=== PATIENT | male | born 1970 | race Caucasian/White ===

== ENCOUNTER 2017-02-14 21:48 | Emergency (ER) | payer BC ==
[~2017-02-14] VITALS: Ht 180.3 cm; Wt 113.6 kg
[2017-02-14] MEDS ORDERED: LOSARTAN POTASS1 TA4 PO (21:57)
[2017-02-14] MEDS ORDERED: VITAMIN D32000 IU PO (21:58)
[2017-02-14] MEDS ORDERED: CYCLOBENZAPRINE10 M1 PO (23:27)
[2017-02-14 23:42] VITALS: BP 150/86
== END 2017-02-14 23:42 | disposition home or self-care (01) ==
LOC: ED 21:48
DX: S29.011A Strain of muscle and tendon of front wall of thorax, initial encounter (principal); S16.1XXA Strain of muscle, fascia and tendon at neck level, initial encounter; I10 Essential (primary) hypertension; X50.3XXA Overexertion from repetitive movements, initial encounter; R07.89 Other chest pain
CPT/HCPCS: J1885

== ENCOUNTER → 2019-08-14 | Outpatient (CLI) | payer BC ==
[~2019-08-14] MED LIST: CYCLOBENZAPRINE10 M1 PO; LOSARTAN POTASS1 TA4 PO; VITAMIN D32000 IU PO
[2019-08-14 16:41] LABS: BASO # 0.1 (0.02-0.10); EOS # 0.1 (0.04-0.40); EOS % 1.5 % (0.0-4.0); HEMATOCRIT 43.4 % (42.0-52.0); HEMOGLOBIN 14.2 g/dL (13.5-18.0); LYMPH# 2.5 (1.50-4.00); MEAN CELL VOLUME 83 fl (78-100); MEAN CORPUSCULAR HEMOGLOBIN 27 pg (27-31); MEAN CORPUSCULAR HGB CONC 33 g/dL (33-37); MEAN PLATELET VOLUME 9.1 fl (7.4-10.4); MONO # 0.8 (0.20-0.80); PLATELET COUNT 345 K/mm3 (130-400); RED BLOOD COUNT 5.23 M/mm3 (4.20-5.60); RED CELL DISTRIBUTION WIDTH 13.8 % (11.5-14.5); WHITE BLOOD COUNT 8.4 K/mm3 (4.8-10.8)
[2019-08-14 16:52] LABS: ALBUMIN 4.3 g/dL (3.5-5.0); POTASSIUM 3.9 mmol/L (3.5-5.1)
[2019-08-14 16:53] LABS: CALCIUM 9.1 mg/dL (8.3-10.5)
[2019-08-14 16:54] LABS: TOTAL PROTEIN 7.3 g/dL (6.4-8.3)
[2019-08-14 16:56] LABS: TOTAL BILIRUBIN 0.7 mg/dL (0.2-1.2)
[2019-08-14 17:37] LABS: ERYTHROCYTE SEDIMENTATION RATE 18 mm/hr (0-15)
[2019-08-15 17:46] LABS: TESTOSTERONE 147 ng/dL (240-871)
== END ==
LOC: LAB 16:31
PROVIDERS: Internal Medicine
DX: Z00.00 Encounter for general adult medical examination without abnormal findings (principal); E23.0 Hypopituitarism; K90.89 Other intestinal malabsorption

== ENCOUNTER → 2019-12-14 | Outpatient (CLI) | payer BC ==
[2019-12-14 07:12] LABS: TOTAL PROTEIN 6.6 g/dL (6.4-8.3)
[2019-12-14 07:14] LABS: TOTAL BILIRUBIN 1.1 mg/dL (0.2-1.2)
[2019-12-14 07:18] LABS: DIRECT BILIRUBIN 0.4 mg/dL (0.0-0.5)
[2019-12-14 18:16] LABS: TESTOSTERONE 858 ng/dL (240-871)
== END ==
LOC: LAB 06:05
PROVIDERS: Internal Medicine
DX: E78.5 Hyperlipidemia, unspecified (principal); E55.9 Vitamin D deficiency, unspecified; K90.9 Intestinal malabsorption, unspecified; R79.89 Other specified abnormal findings of blood chemistry

== ENCOUNTER → 2020-08-15 | Outpatient (CLI) | payer BC ==
[2020-08-15 17:02] LABS: BASO # 0.1 (0.02-0.10); EOS # 0.1 (0.04-0.40); EOS % 1.1 % (0.0-4.0); HEMATOCRIT 47.8 % (42.0-52.0); HEMOGLOBIN 15.8 g/dL (13.5-18.0); LYMPH# 2.7 (1.50-4.00); MEAN CELL VOLUME 84 fl (78-100); MEAN CORPUSCULAR HEMOGLOBIN 28 pg (27-31); MEAN CORPUSCULAR HGB CONC 33 g/dL (33-37); MEAN PLATELET VOLUME 9.1 fl (7.4-10.4); MONO # 1.2 (0.20-0.80); NEU # 6.2 (1.40-6.50); PLATELET COUNT 281 K/mm3 (130-400); RED BLOOD COUNT 5.72 M/mm3 (4.20-5.60); RED CELL DISTRIBUTION WIDTH 13.8 % (11.5-14.5); WHITE BLOOD COUNT 10.3 K/mm3 (4.8-10.8)
[2020-08-15 17:08] LABS: ALBUMIN 4.3 g/dL (3.5-5.0)
[2020-08-15 17:09] LABS: CALCIUM 9.4 mg/dL (8.3-10.5)
[2020-08-15 17:55] LABS: ERYTHROCYTE SEDIMENTATION RATE 7 mm/hr (0-15)
[2020-08-16 18:03] LABS: TESTOSTERONE 599 ng/dL (221-716)
== END ==
LOC: LAB 16:47
PROVIDERS: Internal Medicine
DX: Z00.00 Encounter for general adult medical examination without abnormal findings (principal); Z12.5 Encounter for screening for malignant neoplasm of prostate

== ENCOUNTER → 2021-08-26 | Outpatient (CLI) | payer OTHER ==
[2021-08-26 11:19] LABS: BASO # 0.07 K/mm3 (0.02-0.10); EOS # 0.13 K/mm3 (0.04-0.40); EOS % 1.7 % (0.0-4.0); HEMATOCRIT 45.4 % (42.0-52.0); LYMPH# 2.46 K/mm3 (1.50-4.00); MEAN CELL VOLUME 86 fl (78-100); MEAN CORPUSCULAR HEMOGLOBIN 28 pg (27-31); MEAN CORPUSCULAR HGB CONC 33 g/dL (33-37); MEAN PLATELET VOLUME 9.1 fl (7.4-10.4); MONO # 0.66 K/mm3 (0.20-0.80); NEU # 4.49 K/mm3 (1.40-6.50); PLATELET COUNT 263 K/mm3 (130-400); WHITE BLOOD COUNT 7.8 K/mm3 (4.8-10.8)
[2021-08-26 11:23] LABS: POTASSIUM 4.2 mmol/L (3.5-5.1)
[2021-08-26 11:24] LABS: ALBUMIN 4.2 g/dL (3.5-5.0)
[2021-08-26 11:25] LABS: CALCIUM 9.6 mg/dL (8.3-10.5)
[2021-08-26 11:26] LABS: TOTAL PROTEIN 6.7 g/dL (6.4-8.3)
[2021-08-26 11:28] LABS: TOTAL BILIRUBIN 1.4 mg/dL (0.2-1.2)
[2021-08-26 11:34] LABS: MAGNESIUM 1.98 mg/dL (1.60-2.60)
[2021-08-26 13:04] LABS: ERYTHROCYTE SEDIMENTATION RATE 4 mm/hr (0-15)
[2021-08-26 16:24] LABS: TESTOSTERONE 328 ng/dL (221-716)
== END ==
LOC: LAB 09:38
PROVIDERS: Internal Medicine
DX: Z00.00 Encounter for general adult medical examination without abnormal findings (principal); Z12.5 Encounter for screening for malignant neoplasm of prostate

== ENCOUNTER → 2021-12-14 | Outpatient (CLI) | payer OTHER | LOC: LAB 11:37 | DX: U07.1 COVID-19 (principal) ==

== ENCOUNTER → 2024-10-06 | Outpatient (CLI) | payer BC ==
[2024-10-06 07:48] LABS: BASO # 0.04 K/mm3 (0.02-0.10); EOS % 1.4 % (0.0-4.0); HEMATOCRIT 44.5 % (42.0-52.0); HEMOGLOBIN 14.5 g/dL (13.5-18.0); LYMPH# 1.81 K/mm3 (1.50-4.00); MEAN CELL VOLUME 84 fl (78-100); MEAN CORPUSCULAR HEMOGLOBIN 27 pg (27-31); MEAN CORPUSCULAR HGB CONC 33 g/dL (33-37); MEAN PLATELET VOLUME 8.9 fl (7.4-10.4); MONO # 0.54 K/mm3 (0.20-0.80); NEU # 4.88 K/mm3 (1.40-6.50); PLATELET COUNT 258 K/mm3 (130-400); RED CELL DISTRIBUTION WIDTH 13.3 % (11.5-14.5); WHITE BLOOD COUNT 7.4 K/mm3 (4.8-10.8)
[2024-10-06 08:00] LABS: CALCIUM 9.3 mg/dL (8.3-10.5)
[2024-10-06 08:02] LABS: TOTAL PROTEIN 6.9 g/dL (6.4-8.3)
[2024-10-06 08:04] LABS: TOTAL BILIRUBIN 0.8 mg/dL (0.2-1.2)
[2024-10-06 08:09] LABS: MAGNESIUM 1.8 mg/dL (1.60-2.60)
[2024-10-07 21:20] LABS: TESTOSTERONE 338 ng/dL (221-716)
== END ==
LOC: LAB 07:27
PROVIDERS: Internal Medicine
DX: Z12.5 Encounter for screening for malignant neoplasm of prostate (principal); Z00.00 Encounter for general adult medical examination without abnormal findings; K90.9 Intestinal malabsorption, unspecified; R73.9 Hyperglycemia, unspecified; E23.0 Hypopituitarism; I10 Essential (primary) hypertension; E78.5 Hyperlipidemia, unspecified